=== PATIENT | male | born 1995 | race Caucasian/White ===

== ENCOUNTER 2024-07-04 17:50 | Emergency (ER) | payer OTHER ==
[~2024-07-04] VITALS: Ht 182.9 cm; Wt 94.3 kg
[2024-07-04] MEDS ORDERED: ACETAMINOPHEN 650 MG/20.3 ML UDC ONE (18:32)
[2024-07-04] MEDS ORDERED: ONDANSETRON 4 MG TAB.RAPDIS ONE (18:32)
[2024-07-04] MEDS: ACETAMINOPHEN 650 MG/20.3 ML UDC PO ONE (18:37)
[2024-07-04] MEDS ORDERED: ACETAMINOPHEN 325 MG TABLET ONE (18:38)
[2024-07-04] MEDS: ONDANSETRON 4 MG TAB.RAPDIS PO ONE (18:41)
[2024-07-04] MEDS: ACETAMINOPHEN 325 MG TABLET PO ONE (18:42)
[2024-07-04] MEDS ORDERED: LIDOCAINE 1%-EPI 1:100,000 20 ML VIAL ONE (20:22)
[2024-07-04] MEDS: LIDOCAINE 2%-EPI 1:100,000 30 ML VIAL TP ONE (20:59)
[2024-07-04] MEDS ORDERED: ACET325C7 PO (21:22)
[2024-07-04] MEDS ORDERED: IBUP-1955 PO (21:22)
[2024-07-04] MEDS ORDERED: TDAP [DIPH/PERTUSSIS/TET] 0.5 ML VIAL IM ONE (21:26)
[2024-07-04] MEDS ORDERED: KETOROLAC TROMETHAMINE 15 MG/ML VIAL ONE (21:26)
[2024-07-04] MEDS: TDAP [DIPH/PERTUSSIS/TET] 0.5 ML VIAL IM ONE (21:39)
[2024-07-04] MEDS: KETOROLAC TROMETHAMINE 15 MG/ML VIAL IM ONE (21:40)
[2024-07-04 21:51] VITALS: BP 135/85; TEMP 98.6; O2SAT 99
== END 2024-07-04 21:52 | disposition home or self-care (01) ==
LOC: ER 17:55
DX: S62.326A Displaced fracture of shaft of fifth metacarpal bone, right hand, initial encounter for closed fracture (principal); S01.01XA Laceration without foreign body of scalp, initial encounter; R11.0 Nausea; R51.9 Headache, unspecified; V43.52XA Car driver injured in collision with other type car in traffic accident, initial encounter; Y93.89 Activity, other specified; Y92.488 Other paved roadways as the place of occurrence of the external cause; Y99.8 Other external cause status
CPT/HCPCS: 12004; 70450; 73130; 73140; 90471; 90715; 96372; 99285; A6403; J1885; J3490; Q0162

== ENCOUNTER 2024-07-10 12:48 | Emergency (ER) | payer OTHER ==
[~2024-07-10] VITALS: Ht 182.9 cm; Wt 81.6 kg
[~2024-07-10 12:48] MED LIST: ACET325C7 PO; IBUP-1955 PO
[2024-07-10 13:02] VITALS: BP 126/69; TEMP 97.9; O2SAT 100
== END 2024-07-10 13:07 | disposition home or self-care (01) ==
LOC: ER 12:55
DX: S01.01XD Laceration without foreign body of scalp, subsequent encounter (principal); Z48.02 Encounter for removal of sutures; X58.XXXD Exposure to other specified factors, subsequent encounter